=== PATIENT | female | born 1955 | race Caucasian/White ===

== ENCOUNTER → 2017-03-29 | Outpatient (CLI) | payer BC ==
--- NOTE | 2017-04-02 11:28 | MM ---
Reason for exam: screening (asymptomatic). Last mammogram was performed 4 years and 3 months ago. Physical Findings: A clinical breast exam by your physician is recommended on an annual basis and results should be correlated with mammographic findings. MG Screening Mammo w CAD Bilateral CC and MLO view(s) were taken. Prior study comparison: December 19, 2012, bilateral digital screening mammo w/CAD. There are scattered fibroglandular densities. No significant changes when compared with prior studies. ASSESSMENT: Negative, BI-RAD 1 RECOMMENDATION: Routine screening mammogram of both breasts in 1 year.
== END | disposition home or self-care (01) ==
LOC: RADMAMWWP 10:08
PROVIDERS: ATTEND Family Medicine
DX: Z12.31 Encounter for screening mammogram for malignant neoplasm of breast (principal)

== ENCOUNTER → 2017-05-07 | Outpatient (CLI) | payer BC ==
--- NOTE | 2017-05-07 14:45 | US ---
EXAMINATION TYPE: US carotid duplex BILAT DATE OF EXAM: 05/07/2017 COMPARISON: NONE CLINICAL HISTORY: H53.8 Visual Disturbance. Pt has beginning cataracts EXAM MEASUREMENTS: RIGHT: Peak Systolic Velocity (PSV) cm/sec ----- Right CCA: 102.5 ----- Right ICA: 88.3 ----- Right ECA: 108.2 ICA/CCA ratio: 0.9 RIGHT: End Diastole cm/sec ----- Right CCA: 27.7 ----- Right ICA: 40.0 ----- Right ECA: 14.5 LEFT: Peak Systolic Velocity (PSV) cm/sec ----- Left CCA: 62.2 ----- Left ICA: 100.6 ----- Left ECA: 84.0 ICA/CCA ratio: 1.6 LEFT: End Diastole cm/sec ----- Left CCA: 13.3 ----- Left ICA: 31.2 ----- Left ECA: 9.1 VERTEBRALS (direction of flow): Right Vertebral: Antegrade Left Vertebral: Antegrade Grayscale, color Doppler, spectral Doppler imaging performed of the carotid arteries. IMPRESSION: No hemodynamic significant stenosis of the proximal internal carotid arteries bilaterall y by Doppler criteria, an indirect measurement of carotid stenosis
== END | disposition home or self-care (01) ==
LOC: RADUSWWP 11:54
PROVIDERS: ATTEND Family Medicine
DX: H53.8 Other visual disturbances (principal)
CPT/HCPCS: 93880

== ENCOUNTER → 2018-04-29 | Outpatient (CLI) | payer BC ==
--- NOTE | 2018-04-29 08:58 | US ---
EXAMINATION TYPE: US pelvic complete DATE OF EXAM: 04/29/2018 COMPARISON: None CLINICAL HISTORY: 63-year-old female N95.0 Postmenopausal bleeding. With vaginal bleeding x 4 days. 1 3 years postmenopausal. TECHNIQUE: Transabdominal sonographic images of the pelvis were acquired. Date of LMP: Post menopausal FINDINGS: EXAM MEASUREMENTS: Uterus: 8.0 x4.4 x 3.5 cm Endometrial Stripe: 7.7 mm Right Ovary: 2.0 x 2.2 x 1.1 cm Left Ovary: 2.4 x 1.9 x 1.4 cm 1. Uterus: Anteverted wnl 2. Endometrium: Mildly thickened for a postmenopausal female 3. Right Ovary: wnl 4. Left Ovary: wnl 5. Bilateral Adnexa: wnl 6. Posterior cul-de-sac: wnl IMPRESSION: Endometrial stripe is mildly thickened for female postmenopausal bleeding at 7.7 mm. Consideration ca n be given to transvaginal scanning for better delineation. Further clinical follow-up and workup as indicated.
== END | disposition home or self-care (01) ==
LOC: RADUSWWP 08:23
PROVIDERS: ATTEND Family Medicine
DX: N95.0 Postmenopausal bleeding (principal); R93.8 Abnormal findings on diagnostic imaging of other specified body structures
CPT/HCPCS: 76856

== ENCOUNTER → 2018-05-22 | Outpatient (CLI) | payer BC ==
--- NOTE | 2018-05-22 14:19 | MM ---
Reason for exam: screening (asymptomatic). Last mammogram was performed 1 year and 2 months ago. History: Patient is postmenopausal. Physical Findings: A clinical breast exam by your physician is recommended on an annual basis and results should be correlated with mammographic findings. MG Screening Mammo w CAD Bilateral CC and MLO view(s) were taken. Prior study comparison: March 29, 2017, bilateral MG screening mammo w CAD. December 19, 2012, bilateral digital screening mammo w/CAD. There are scattered fibroglandular densities. Asymmetric breast tissue left posterior upper aspect, stable. There is no discrete abnormality. ASSESSMENT: Negative, BI-RAD 1 RECOMMENDATION: Routine screening mammogram of both breasts in 1 year.
== END | disposition home or self-care (01) ==
LOC: RADMAMWWP 07:29
PROVIDERS: ATTEND Family Medicine
DX: Z12.31 Encounter for screening mammogram for malignant neoplasm of breast (principal)
CPT/HCPCS: 77067

== ENCOUNTER → 2020-02-18 | Outpatient (CLI) | payer BC ==
--- NOTE | 2020-02-18 15:53 | US ---
EXAMINATION TYPE: US pelvis complete transvag DATE OF EXAM: 02/18/2020 COMPARISON: US April 29, 2018 CLINICAL HISTORY: N94.6 dysmenorrhea, unspecified. Abnormal vaginal bleeding TECHNIQUE: Transvaginal (TV) and Transabdominal (TA) . EXAM MEASUREMENTS: Uterus: 8.8 x 3.5 x 5.9 cm Endometrial Stripe: 0.9 cm Very large body habitus 1. Uterus: Anteverted Heterogeneous 2. Endometrium: Poorly delineated, 3. Right Ovary: Obscured by overlying bowel gas 4. Left Ovary: Obscured by overlying bowel gas 5. Bilateral Adnexa: wnl 6. Posterior cul-de-sac: wnl IMPRESSION: Suboptimal study. Endometrium not well seen but appears slightly thickened on transvagina l images 25 and 26 and warrants further workup with sampling based on patient's symptoms of bleeding to rule out neoplasm.
== END | disposition home or self-care (01) ==
LOC: RADUSWWP 15:00
PROVIDERS: ATTEND Family Medicine
DX: N94.6 Dysmenorrhea, unspecified (principal)
CPT/HCPCS: 76830; 76856

== ENCOUNTER → 2020-03-07 | Outpatient (CLI) | payer BC ==
[2020-03-07 15:37] LABS: Basophils # (A) 0.1 k/uL (0-0.2); Basophils % (A) 1 %; Eosinophils # (A) 0.3 k/uL (0-0.7); Eosinophils % (A) 3 %; HCT 43.7 % (34.0-46.0); Lymphocytes # (A) 3.7 k/uL (1.0-4.8); Lymphocytes % (A) 35 %; MCH 29.7 pg (25.0-35.0); MCHC 34.4 g/dL (31.0-37.0); MCV 86.4 fL (80.0-100.0); Mean Platelet Volume 7.9; Monocytes # (A) 0.5 k/uL (0-1.0); Monocytes % (A) 5 %; Neutrophils # (A) 6.1 k/uL (1.3-7.7); Neutrophils % (A) 56 %; Platelet Count 274 k/uL (150-450); RBC 5.06 m/uL (3.80-5.40); WBC 10.8 k/uL (3.8-10.6)
== END | disposition home or self-care (01) ==
LOC: LABPAT 15:00
PROVIDERS: ATTEND Obstetrics & Gynecology
DX: Z01.818 Encounter for other preprocedural examination (principal); Z01.810 Encounter for preprocedural cardiovascular examination; N85.01 Benign endometrial hyperplasia
CPT/HCPCS: 36415; 85025; 93005

== ENCOUNTER 2020-03-15 08:23 | Day surgery (SDC) | payer BC ==
[2020-03-11 10:44] VITALS: BMI 38.0
[~2020-03-15 08:23] MED LIST: DEXAMETHASONE SOD PHOSPHATE 10 MG/ML 1 ML VIAL IV ONE; HYDROmorphone 0.5 MG/0.5 ML SYRINGE IVP PRN; LACTATED RINGERS 1,000 ML IV SCH; MIDAZOLAM 2 MG/2 ML VIAL IV PRN; ONDANSETRON 4 MG/2 ML VIAL IVP ONE; SCOPOLAMINE 1.5MG/72HR PATCH TRANSDERM ONE
[2020-03-15] MEDS ORDERED: ONDANSETRON 4 MG/2 ML VIAL ONE (08:52)
[2020-03-15 08:54] LABS: Glucose,Whole Blood 172 mg/dL (75-99)
[2020-03-15] MEDS ORDERED: fentaNYL (PF) 50 MCG/ML 2 ML AMP ONE (11:02)
[2020-03-15] MEDS ORDERED: MIDAZOLAM 2 MG/2 ML VIAL ONE (11:02)
[2020-03-15] MEDS ORDERED: PROPOFOL 10 MG/ML 20 ML VIAL IV ONE (11:02)
[2020-03-15] MEDS ORDERED: LIDOCAINE 1% INJ 10MG/ML (20 ML MDV) ONE (11:02)
[2020-03-15] MEDS ORDERED: KETOROLAC 30 MG/ML 1 ML VIAL ONE (11:02)
--- NOTE | 2020-03-15 11:42 | P.OP ---
Date of Procedure: 03/15/20 Preoperative Diagnosis: Non-atypical endometrial hyperplasia Postoperative Diagnosis: Same, endometrial and endocervical polyps, all removed Procedure(s) Performed: Fractional D&C, hysteroscopy Anesthesia: LATASHAA Surgeon: Alexandra Sierra Estimated Blood Loss (ml): 5 IV fluids (ml): 400 Urine output (ml): 300 Pathology: other (Endocervical and endometrial curettings) Condition: stable Disposition: PACU Operative Findings: Endocervical and endometrial polyps. No fibroids. Clear cavity upon completion of procedure. Description of Procedure: Patient is brought to the [facility] and suite where a general anesthetic is administered. She's placed in the dorsal lithotomy position. The appropriate timeout is performed to assure proper patient procedure identification. Antibiotics are not deemed necessary. Examination under anesthesia reveals a small anteverted uterus with negative adnexa bilaterally. Bladder is drained for approximately 300 mL of clear yellow urine. The cervix, vagina, perineum, and perineal areas are all prepped and draped in usual sterile fashion. Weighted speculum was placed into the vagina. Anterior lip of the cervix is grasped with a Allis clamp. Endocervical cervical curettings are taken with a Kevorkian curette, inclusive of a small polyp. The uterus then sounds to a depth of 9 cm in the anteverted position. The cervix was gently and systematically dilated using Hanks dilators. A medium sharp curette is used and the cavity is thoroughly and systematically curettaged. Small and no metrorrhagia polyps are obtained and sent to pathology. A polyp forcep is then used until I am certain that the cavity is completely clear. Instrumentation is removed from the vagina. All sponge needle and enhancement counts are correct. Patient is brought back to recovery room in very good condition with stable vital signs including blood pressure 98/48, pulse 62. She will follow-up with me in the office in 2 weeks. Toradol is given prior to leaving the operative suite.
[2020-03-15 11:43] VITALS: TEMP 98.1
[2020-03-15 13:12] VITALS: BP 131/62; PULSE 67; RESP 16
== END 2020-03-15 13:14 | disposition home or self-care (01) ==
LOC: OR 08:23
PROVIDERS: ATTEND Obstetrics & Gynecology
DX: N84.0 Polyp of corpus uteri (principal); E11.9 Type 2 diabetes mellitus without complications; E78.5 Hyperlipidemia, unspecified; E66.01 Morbid (severe) obesity due to excess calories; G47.00 Insomnia, unspecified; G60.9 Hereditary and idiopathic neuropathy, unspecified; L40.9 Psoriasis, unspecified; E55.9 Vitamin D deficiency, unspecified; E88.81 Metabolic syndrome and other insulin resistance; R51 Headache; J30.9 Allergic rhinitis, unspecified; Z68.37 Body mass index [BMI] 37.0-37.9, adult; Z79.899 Other long term (current) drug therapy; Z79.84 Long term (current) use of oral hypoglycemic drugs; Z87.440 Personal history of urinary (tract) infections; Z90.49 Acquired absence of other specified parts of digestive tract; Z98.890 Other specified postprocedural states; Z98.51 Tubal ligation status; Z82.3 Family history of stroke; Z80.1 Family history of malignant neoplasm of trachea, bronchus and lung; Z80.0 Family history of malignant neoplasm of digestive organs; Z82.49 Family history of ischemic heart disease and other diseases of the circulatory system
CPT/HCPCS: 58558; 88305; J2250; J1100; J2405; J2001; J3010; J1885; J2704

== ENCOUNTER → 2020-07-20 | Outpatient (CLI) | payer BC ==
[2020-07-20 13:18] LABS: African American GFR (CKD) >90 (>60 ml/min/1.73 sqM); Blood Urea Nitrogen 17 mg/dL (7-17); Non-African American GFR(CKD) >90 (>60 ml/min/1.73 sqM)
--- NOTE | 2020-07-20 15:25 | CT ---
CT CHEST FOR PULMONARY EMBOLISM. EXAMINATION TYPE: CT angio chest DATE OF EXAM: 07/20/2020 INDICATION: Abnormal CXR CT DLP: 826 mGycm, Automated exposure control for dose reduction was used. CONTRAST: Patient injected with 100 mL of Isovue 370. COMPARISON: None. There are no recent chest x-rays at this location. If this abnormal chest x-ray can be required, an addendum report can be performed. TECHNIQUE: CT of the chest is performed on a spiral scan at 2 mm thick sections. Study is performed with intravenous contrast timed for evaluation for pulmonary embolism. This will limit additional po rtions of the evaluation. 3-D MIP images reconstructed by the technologist are reviewed on the compu ter in the coronal and sagittal planes. FINDINGS: The inferior right lobe thyroid within the [id number] is enlarged and heterogenous measu ring 3.8 x 2.7 cm. Consider correlation with ultrasound. No persistent filling defects are evident to suggest an acute pulmonary embolism. No mediastinal or hilar adenopathy enlarged by CT criteria is evident. The ascending aorta diameter at the level of the main pulmonary artery is 3.5 cm. The main pulmonary artery diameter at the bifur cation is 2.5 cm. Lung windows are clear. Limited CT section through the upper abdomen. There is mild fatty infiltration to the liver. IMPRESSIONS: 1. No acute pulmonary embolism. 2. Heterogenous enlarged thyroid, additional workup with ultrasound is recommended.
== END | disposition home or self-care (01) ==
LOC: RADCTMAIN 11:51
PROVIDERS: ATTEND Family Medicine
DX: J98.59 Other diseases of mediastinum, not elsewhere classified (principal); E11.8 Type 2 diabetes mellitus with unspecified complications
CPT/HCPCS: 82565; 84520; 71275; 36415; Q9967

== ENCOUNTER → 2020-09-08 | Outpatient (CLI) | payer BC ==
--- NOTE | 2020-09-08 15:14 | US ---
EXAMINATION TYPE: US thyroid st tissue head/neck DATE OF EXAM: 09/08/2020 COMPARISON: NONE CLINICAL HISTORY: E04.[address], difficulty swallowing, insomnia, weight gain GLAND SIZE: Right Lobe: 6.1 x 3.6 x 3.1 cm Overall Parenchyma: heterogenous Left Lobe: 4.7 x 1.0 x 0.8 cm Overall Parenchyma: homogeneous Isthmus Thickness: 0.4 cm NODULES RIGHT: # of nodules measured on right: 0 LEFT: # of nodules measured on left: 0 ISTHMUS: # of nodules measured in the isthmus: 0 Bilateral neck scanned, no evidence of lymphadenopathy. IMPRESSION: Enlarged right lobe thyroid appears heterogenous. Discrete nodules not identified.
== END | disposition home or self-care (01) ==
LOC: RADUSWWP 14:10
PROVIDERS: ATTEND Family Medicine
DX: E04.9 Nontoxic goiter, unspecified (principal)
CPT/HCPCS: 76536

== ENCOUNTER → 2020-09-30 | Outpatient (CLI) | payer BC ==
[2020-09-30 09:25] LABS: African American GFR (CKD) >90 (>60 ml/min/1.73 sqM); Blood Urea Nitrogen 21 mg/dL (7-17); Non-African American GFR(CKD) >90 (>60 ml/min/1.73 sqM)
--- NOTE | 2020-09-30 11:43 | CT ---
EXAMINATION TYPE: CT soft tissue neck w con DATE OF EXAM: 09/30/2020 HISTORY: Abnormal prior CT and ultrasound COMPARISON: Thyroid ultrasound September 08, 2020. CTA chest July 20, 2020 CT DLP: 457 mGycm. Automated Exposure Control for Dose Reduction was Utilized. TECHNIQUE: CT scan of the neck is performed with IV Contrast, patient injected with 100 mL of Isovue 300, axial images are obtained, coronal and sagittal reformatted images are reviewed. FINDINGS: Airway: Heterogeneous asymmetric right thyroid enlargement correlates with recent studies without def initive discrete nodule on CT. Parotid/submandibular glands: Symmetric moderate generalized fat replaced atrophy or low density to the parotid glands. Carotid/Vascular Structures: No suspicious abnormality. Osseous Structures: Disc space narrowing with some posterior osteophytic fusion C2-C3 level. Moderate to severe disc space narrowing and spurring C5-C6 level. Posterior spur disc complex effaces anterio r thecal sac. Mild to moderate disc space narrowing with moderate posterior spurring and posterior sp ur disc complex effacing anterior thecal sac C6-C7 level. Slight underlying scoliotic curvature in th e upper thoracic spine. Other: No suspicious greater than 1 cm adenopathy. Occasional scattered prominent but subcentimeter n juan lymph nodes. IMPRESSION: Confirmation of heterogeneous enlarged right thyroid lobe or goiter as suspected on recen t studies.
== END | disposition home or self-care (01) ==
LOC: RADCTMAIN 08:34
PROVIDERS: ATTEND Family Medicine
DX: R93.89 Abnormal findings on diagnostic imaging of other specified body structures (principal)
CPT/HCPCS: 82565; 84520; 70491; 36415; Q9967

== ENCOUNTER → 2020-11-15 | Outpatient (CLI) | payer BC ==
--- NOTE | 2020-11-16 10:28 | MM ---
Reason for exam: screening (asymptomatic). Last mammogram was performed 2 years and 6 months ago. History: Patient is postmenopausal. Physical Findings: A clinical breast exam by your physician is recommended on an annual basis and results should be correlated with mammographic findings. MG Screening Mammo w CAD Bilateral CC and MLO view(s) were taken. Prior study comparison: May 22, 2018, bilateral MG screening mammo w CAD. March 29, 2017, bilateral MG screening mammo w CAD. There are scattered fibroglandular densities. There are benign appearing vascular calcifications in the right breast. There is no discrete abnormality. ASSESSMENT: Benign, BI-RAD 2 RECOMMENDATION: Routine screening mammogram of both breasts in 1 year.
== END | disposition home or self-care (01) ==
LOC: RADMAMWWP 15:56
PROVIDERS: ATTEND Family Medicine
DX: Z12.31 Encounter for screening mammogram for malignant neoplasm of breast (principal)
CPT/HCPCS: 77067

== ENCOUNTER → 2020-12-28 | Outpatient (CLI) | payer BC ==
--- NOTE | 2020-12-28 13:33 | US ---
EXAMINATION TYPE: US venous doppler duplex LE DATE OF EXAM: 12/28/2020 1:07 PM COMPARISON: NONE CLINICAL HISTORY: R60.0 Edema Lower Extremity. No redness. Left knee discomfort. Patient states she had covid in June. SIDE PERFORMED: Bilateral TECHNIQUE: The lower extremity deep venous system is examined utilizing real time linear array sonog karma with graded compression, doppler sonography and color-flow sonography. VESSELS IMAGED: Common Femoral Vein Deep Femoral Vein Greater Saphenous Vein * Femoral Vein Popliteal Vein Small Saphenous Vein * Proximal Calf Veins (* superficial vessels) Right Leg: Negative for DVT Left Leg: Negative for DVT Grayscale, color doppler, spectral doppler imaging performed of the deep veins of the bilateral lower extremities. There is normal flow, compressibility, vascular waveforms. IMPRESSION: No ultrasound evidence for acute DVT in either lower extremity.
== END | disposition home or self-care (01) ==
LOC: RADUSWWP 12:46
PROVIDERS: ATTEND Family Medicine
DX: R60.0 Localized edema (principal)
CPT/HCPCS: 93970

== ENCOUNTER → 2021-01-06 | Outpatient (CLI) | payer BC ==
[2021-01-06 23:08] LABS: Thyroid Peroxidase Antibodies <28.0 U/mL (0.0-60.0)
== END | disposition home or self-care (01) ==
LOC: LABWHC1 13:28
PROVIDERS: ATTEND Nurse Practitioner Family
DX: E04.1 Nontoxic single thyroid nodule (principal); M54.2 Cervicalgia; R13.14 Dysphagia, pharyngoesophageal phase
CPT/HCPCS: 36415; 84439; 84443; 84481; 86376; 86800

== ENCOUNTER 2021-01-11 12:47 | Day surgery (SDC) | payer BC ==
[2021-01-11 13:55] VITALS: RESP 16; TEMP 98.1
--- NOTE | 2021-01-11 14:04 | US ---
ULTRASOUND GUIDED FNA THYROID BIOPSY: CLINICAL HISTORY: Enlarged right lobe thyroid request for biopsy FINDINGS: The procedure was explained to the patient. The risks, complications, benefits and alternatives were discussed and any questions were answered. Informed consent was obtained. Patient was placed supin e on the ultrasound table and prepped and draped in the usual sterile fashion. Utilizing a 25 gauge needle, five passes were made into the requested right enlarged right lobe of the thyroid. Patient was stable throughout the procedure. Pathology is pending. All elements of maximal barrier technique were utilized. IMPRESSION: 1. Successful ultrasound guided FNA thyroid biopsy.
[2021-01-11 14:15] VITALS: BP 121/60; PULSE 80
== END 2021-01-11 14:10 | disposition home or self-care (01) ==
LOC: RADPROMAIN 12:47
PROVIDERS: ATTEND Otolaryngology
DX: E04.1 Nontoxic single thyroid nodule (principal)
CPT/HCPCS: 10005; 88173; 88305

== ENCOUNTER → 2021-03-28 | Outpatient (CLI) | payer BC ==
--- NOTE | 2021-03-29 05:25 | MR ---
EXAMINATION TYPE: MR lumbar spine wo con DATE OF EXAM: 03/28/2021 COMPARISON: HISTORY: Low back pain for years. Back locks up when bending. Multiplanar multiecho imaging of the lumbar spine without contrast. Vertebra have normal alignment. There is no significant disc space narrowing. The neural foramina are fairly well-maintained. There is developmentally adequate spinal canal. There is small posterior dis c bulging at L4-5 and L5-S1. The sacroiliac joints are intact. There is no paraspinal mass. There is no compression fracture. IMPRESSION: Mild degenerative disc changes in the lower lumbar spine. No fracture. Small posterior disc bulging w ithout compromise of the spinal canal.
== END | disposition home or self-care (01) ==
LOC: RADMRIMAIN 08:10
PROVIDERS: ATTEND Family Medicine
DX: M51.36 Other intervertebral disc degeneration, lumbar region (principal)
CPT/HCPCS: 72148

== ENCOUNTER → 2021-07-07 | Outpatient (CLI) | payer BC ==
--- NOTE | 2021-07-07 14:10 | US ---
EXAMINATION TYPE: US thyroid st tissue head/neck DATE OF EXAM: 07/07/2021 COMPARISON: Biopsy 01-11-21 CLINICAL HISTORY: E04.1 THYROID NODULE R. GLAND SIZE: Right Lobe: 5.8x3.5x2.9 cm Overall Parenchyma: heterogenous Left Lobe: 3.7x1.5x1.1cm cm Overall Parenchyma: homogeneous Isthmus Thickness: 0.4 cm NODULES RIGHT: # of nodules measured on right: 1 Heterogenous entire lobe 1. 5.8 X 3.5 x 2.9 cm, mid mid, mixed cystic and solid, isoechoic nodule, which is wider than tall, with smooth margins, without echogenic foci. Prior size: 6.1 x 3.6 x 3.1 cm LEFT: # of nodules measured on left: 0 ISTHMUS: # of nodules measured in the isthmus: 1 1. 0.7 X 0.6 x 0.3 cm solid or almost completely solid, hypoechoic nodule, which is wider than tall , with smooth margins, without echogenic foci. Bilateral neck scanned, no evidence of lymphadenopathy. IMPRESSION: 1. Nodule within the right lobe thyroid is not considered suspicious by criteria. Follow-up can be pe rformed as clinically indicated. 2017 ACR TI-RADS LEVEL: TR-RADS 2 - Not Suspicious: No FNA *Highest TI-RADS level nodule reported
== END | disposition home or self-care (01) ==
LOC: RADUSWWP 13:21
PROVIDERS: ATTEND Otolaryngology
DX: E04.1 Nontoxic single thyroid nodule (principal)
CPT/HCPCS: 76536

== ENCOUNTER → 2022-01-26 | Outpatient (CLI) | payer MEDICARE ==
--- NOTE | 2022-01-27 09:08 | US ---
EXAMINATION TYPE: US thyroid st tissue head/neck DATE OF EXAM: 01/26/2022 COMPARISON: 01/11/2021, 07/07/2021 CLINICAL HISTORY: E04.1 Thyroid nodule. GLAND SIZE: Right Lobe: 6.1 x 2.9 x 3.4 cm Left Lobe: 4.9 x 1.0 x 1.7 cm Isthmus Thickness: 0.43 cm NODULES RIGHT: # of nodules measured on right: 1 1. 5.8 X 3.0 x 3.8 cm, mid, solid or almost completely solid, isoechoic nodule, which is wider than tall, with smooth margins, without echogenic foci. TR 3 Prior size: 5.8 x 3.0 x 2.9 cm LEFT: # of nodules measured on left: 0 ISTHMUS: # of nodules measured in the isthmus: 1 1. 0.5 X 0.4 x 0.5 cm solid or almost completely solid, isoechoic nodule, which is wider than tall, with smooth margins, without echogenic foci. TR3, Previously TR 2. Prior size: 0.7 x 0.6 x 0.3 cm Bilateral neck scanned, no evidence of lymphadenopathy. IMPRESSION: Mildly suspicious nodule right lobe thyroid. This was biopsied 2020. 2017 ACR TI-RADS LEVEL: TR-RADS 3 - Mildly Suspicious: Follow if > 1.5 cm, FNA if > 2.5 cm *Highest TI-RADS level nodule reported
== END | disposition home or self-care (01) ==
LOC: RADUSWWP 16:44
PROVIDERS: ATTEND Otolaryngology
DX: E04.1 Nontoxic single thyroid nodule (principal)
CPT/HCPCS: 76536

== ENCOUNTER → 2022-07-27 | Outpatient (CLI) | payer MEDICARE ==
[2022-07-27 13:36] LABS: African American GFR (CKD) >90 (>60 ml/min/1.73 sqM); Blood Urea Nitrogen 14 mg/dL (7-17); Non-African American GFR(CKD) >90 (>60 ml/min/1.73 sqM)
--- NOTE | 2022-07-27 14:37 | CT ---
EXAMINATION TYPE: CT angio chest DATE OF EXAM: 07/27/2022 2:21 PM COMPARISON: 07/20/2020 HISTORY: Aneursym of ascending aorta. CT DLP: 921 mGycm Automated exposure control for dose reduction was used. CONTRAST: CTA scan of the thorax is performed without and with IV Contrast, patient injected with 100ml mL of I sovue 370, pulmonary embolism protocol. 3-D postprocessing was utilized. FINDINGS: The lungs are clear of consolidative, interstitial or masslike density. There is no pleural effusion, pleural chest are normal and there is no mediastinal, hilar or axillary adenopathy. There is no aneurysm dilatation of the ascending thoracic aorta. There are no filling defects in pulmonary artery branches and no biliary embolism. There is a 4.1 x 3.5 cm mass of the right thyroid gland sono-guided fine needle aspiration is recomme nded performed. Limited scanning through the upper abdomen reveals no gross abnormality. There are no focal lytic osseous abnormalities thorax. IMPRESSION: 1. No evidence of thoracic aortic aneurysm. 2. No pulmonary embolus. 3. No acute cardiopulmonary disease. 4. Large right thyroid mass and FNA is recommended if not already performed.
== END | disposition home or self-care (01) ==
LOC: RADCTMAIN 12:58
PROVIDERS: ATTEND Family Medicine
DX: E07.9 Disorder of thyroid, unspecified (principal); I71.21 Aneurysm of the ascending aorta, without rupture
CPT/HCPCS: 82565; 84520; 71275; 36415; Q9967

== ENCOUNTER → 2022-08-23 | Outpatient (CLI) | payer MEDICARE ==
--- NOTE | 2022-08-24 09:24 | MM ---
Reason for Exam: Screening (asymptomatic). Last mammogram was performed 1 year(s) and 9 month(s) ago. Patient History: Menarche at age 11. First Full-Term at age 23. Postmenopausal. Paternal grandmother had ovarian cancer. Risk Values: Kerri 5 year model risk: 1.7%. NCI Lifetime model risk: 5.7%. Prior Study Comparison: 03/29/2017 Bilateral Screening Mammogram, [facility]. 05/22/2018 Bilateral Screening Mammogram, [facility]. 11/15/2020 Bilateral Screening Mammogram, [facility]. Tissue Density: There are scattered fibroglandular densities. Findings: Analyzed By CAD. Benign appearing vascular calcification in the right breast is redemonstrated. There is no suspicious group of microcalcifications or new suspicious mass in either breast. Overall Assessment: Benign, BI-RAD 2 Management: Screening Mammogram of both breasts in 1 year. A clinical breast exam by your physician is recommended on an annual basis and results should be correlated with mammographic findings. Electronically signed and approved by: Naseem Gatica M.D.
== END | disposition home or self-care (01) ==
LOC: RADMAMWWP 08:08
PROVIDERS: ATTEND Family Medicine
DX: Z12.31 Encounter for screening mammogram for malignant neoplasm of breast (principal); Z78.0 Asymptomatic menopausal state; Z80.41 Family history of malignant neoplasm of ovary
CPT/HCPCS: 77063; 77067

== ENCOUNTER → 2023-01-18 | Outpatient (CLI) | payer MEDICARE ==
--- NOTE | 2023-01-19 06:13 | US ---
EXAMINATION TYPE: US thyroid st tissue head/neck DATE OF EXAM: 01/18/2023 COMPARISON: US 01/26/22 CLINICAL INDICATION: Female, 67 years old with history of E04.1 thyroid nodule; Nodule. Hx of FNA. GLAND SIZE: Right Lobe: 6.5 x 4.5 x 3.0 cm Overall Parenchyma: heterogenous Left Lobe: 5.0 x 1.5 x 1.3 cm Overall Parenchyma: heterogenous Isthmus Thickness: 0.34 cm NODULES RIGHT: # of nodules measured on right: 1 1. 5.8 X 3.9 x 2.8 cm, mid mid, solid or almost completely solid, isoechoic-slightly hypoechoic nod ule, which is wider than tall, with smooth margins, without echogenic foci. Prior size: 5.8 x 3.0 x 3.8 cm LEFT: # of nodules measured on left: 1 1. 0.5 X 0.4 x 0.5 cm, mid mid, solid or almost completely solid, hyperechoic nodule, which is tall er than wide, with ill-defined margins, without echogenic foci. Prior size: Not seen on prior ISTHMUS: # of nodules measured in the isthmus: 1 1. 0.8 X 0.8 x 0.5 cm solid or almost completely solid, hypoechoic nodule, which is wider than tall , with smooth margins, without echogenic foci. Prior size: 0.5 x 0.4 x 0.5 cm Bilateral neck scanned, no evidence of lymphadenopathy. Heterogeneous slightly enlarged thyroid with dominant right-sided nodule redemonstrated. IMPRESSION: As above. No significant change from most recent prior ultrasound.
== END | disposition home or self-care (01) ==
LOC: RADUSWWP 16:50
PROVIDERS: ATTEND Otolaryngology
DX: E04.2 Nontoxic multinodular goiter (principal)
CPT/HCPCS: 76536

== ENCOUNTER → 2024-01-13 | Outpatient (CLI) | payer MEDICARE ==
--- NOTE | 2024-01-13 16:19 | US ---
EXAMINATION TYPE: US thyroid st tissue head/neck DATE OF EXAM: 01/13/2024 COMPARISON: US 05/07/2023 CLINICAL INDICATION: Female, 68 years old with history of E04.2 NONTOXIC MULTINODULAR GOITER; Goiter GLAND SIZE: Right Lobe: 6.3 x 4.0 x 3.1 cm Overall Parenchyma: heterogeneous Left Lobe: 4.5 x 1.5 x 1.2 cm Overall Parenchyma: heterogeneous Isthmus Thickness: 0.31 cm NODULES RIGHT: # of nodules measured on right: 1 1. 5.7 X 3.9 x 3.0 cm, mid mid, Prior size: 5.1 x 3.0 x 4.5 cm TIRADS Score: 3 TIRADS Category 3: Composition: Solid or almost completely solid (2 points). Echogenicity: Hyperechoic or isoechoic (1 point). Shape: Wider than tall (0 points). Margin: Smooth (0 points). Echogenic foci: None or large comet-tail artifacts (0 points) Recommendation: If >2.5cm: FNA; If >1.5cm: Follow up at 1,3,5 years LEFT: # of nodules measured on left: 1 1. 0.6 X 0.6 x 0.4 cm, mid mid, Prior size: Not measured on exam from 05/07/23, measured 0.5 x 0. 4 x 0.5 cm on exam from 01/18/2023. TIRADS Score: 3 TIRADS Category 3: Composition: Solid or almost completely solid (2 points). Echogenicity: Hyperechoic or isoechoic (1 point). Shape: Wider than tall (0 points). Margin: Smooth (0 points). Echogenic foci: None or large comet-tail artifacts (0 points) Recommendation: If >2.5cm: FNA; If >1.5cm: Follow up at 1,3,5 years ISTHMUS: # of nodules measured in the isthmus: 1 1. 0.8 X 0.8 x 0.4 cm Prior size: 0.5 cm TIRADS Score: 4 TIRADS Category 4: Composition: Solid or almost completely solid (2 points). Echogenicity: Hypoechoic (2 points). Shape: Wider than tall (0 points). Margin: Smooth (0 points). Echogenic foci: None or large comet-tail artifacts (0 points) Recommendation: If >1.5cm: FNA; If >1cm: Follow up at 1,2, 3,5 years Bilateral neck scanned, no evidence of lymphadenopathy. IMPRESSION: Thyroid nodules bilaterally right thyroid nodule has been biopsied on 01/11/2021, other thyroid nodule s meet criteria for follow-up
[2024-01-14 03:31] LABS: T4, Free (Free Thyroxine) 1.07 ng/dL (0.80-1.80)
[2024-01-14 03:47] LABS: Thyroid Peroxidase Antibodies <9.0 U/mL (0.0-33.0)
== END | disposition home or self-care (01) ==
LOC: RADUSWWP 14:59
PROVIDERS: ATTEND Otolaryngology
DX: E04.2 Nontoxic multinodular goiter (principal)
CPT/HCPCS: 76536; 84432; 84439; 84443; 84481; 86376

== ENCOUNTER 2024-01-17 07:57 | Day surgery (SDC) | payer MEDICARE ==
[2024-01-17 09:31] VITALS: RESP 18; TEMP 98
--- NOTE | 2024-01-17 10:10 | US ---
EXAMINATION TYPE: US FNA thyroid first lesion DATE OF EXAM: 01/17/2024 10:06 AM CLINICAL INDICATION:Female, 68 years old with history of E04.1 NONTOXIC SINGLE THYROID NODULE; , thyr oid nodule. COMPARISON: 01/13/2024 ATTENDING: Dr. Yung Mcnally PROCEDURE: Informed consent was obtained. The risks and benefits of the procedure were discussed with the patien t. The site was marked. Timeout procedure was performed Ultrasound imaging of the thyroid demonstrates right thyroid nodule The patient was prepped, draped in the usual sterile fashion, and locally anesthetized with 1% lidoca ine. Five fine needle aspiration were then performed with a 25 gauge needle. Samples were sent to [facility] pathology department for further analysis. Patient tolerated the procedure without incident and wa s sent home in stable condition. IMPRESSION: Successful ultrasound guided fine needle aspiration.
[2024-01-17 10:31] VITALS: BP 145/83; PULSE 71
== END 2024-01-17 10:00 | disposition home or self-care (01) ==
LOC: RADPROMAIN 07:57
PROVIDERS: ATTEND Otolaryngology
DX: E04.1 Nontoxic single thyroid nodule (principal)
CPT/HCPCS: 10005; 88173; 88305

== ENCOUNTER → 2024-02-05 | Outpatient (CLI) | payer MEDICARE ==
--- NOTE | 2024-02-05 19:26 | MR ---
EXAMINATION TYPE: MR lumbar spine wo con DATE OF EXAM: 02/05/2024 9:22 AM CLINICAL INDICATION:Female, 68 years old with history of M54.41 LUMBAGO WITH SCIATICA, R G57.91 [place]; PHH, Low back pain. COMPARISON: 03/28/2021. TECHNIQUE: Multi planar, multi sequence imaging was performed utilizing: T1-weighted, T2-weighted, a nd turbo inversion recovery imaging of the lumbar spine. IV Contrast: cc . (None if empty) FINDINGS: Alignment: The lumbar vertebral bodies have preserved heights and alignment. Cord: The conus medullaris and the distal spinal cord appear unremarkable with regards to their signa l intensity and morphology. Bones/Discs: Mild degeneration changes throughout the spine with osteophyte formation and facet joint arthropathy. Multilevel disc desiccation is present. High T1 high T2 signal within the L2 left trans verse process most suggestive of focal fatty marrow given signal dropout on STIR imaging. T12-L1: No evidence of significant spinal canal stenosis or neural foraminal stenosis. L1-L2: No evidence of significant spinal canal stenosis or neural foraminal stenosis. L2-L3: No evidence of significant spinal canal stenosis or neural foraminal stenosis. L3-L4: No evidence of significant spinal canal stenosis or neural foraminal stenosis. L4-L5: Disc bulge and facet joint arthropathy result in mild spinal canal and mild to moderate left a nd mild right neural foraminal stenosis. L5-S1: The disc has a rounded posterior morphology without significant spinal canal stenosis. Facet j oint arthropathy with moderate to severe right and moderate left bilateral neural foraminal stenosis. No significant spinal canal or neural foraminal stenosis in the remainder of the visualized levels. Other findings: None. IMPRESSION: Findings similar to prior exam in 2020. 1. No definitive evidence of disc herniation or significant spinal canal stenosis. 2. Mild disc degeneration with associated osteoarthritic changes. No neural foraminal stenosis worse at L5-S1 moderate to severe right and moderate left and moderate left L4-L5.
== END | disposition home or self-care (01) ==
LOC: RADMRIMAIN 08:41
PROVIDERS: ATTEND Family Medicine
DX: M51.36 Other intervertebral disc degeneration, lumbar region (principal); M54.41 Lumbago with sciatica, right side; G57.91 Unspecified mononeuropathy of right lower limb
CPT/HCPCS: 72148